=== PATIENT | female | born 1955 | race American Indian/Alaskan Native ===

== ENCOUNTER 2019-02-21 10:58 | Emergency (ER) | payer OTHER ==
[2019-02-21 11:05] VITALS: BP 134/64
--- NOTE | 2019-02-21 12:31 | Emergency Department Report ---
HPI - General Chief Complaint: Arrhythmia/Palpitations Time Seen by Provider: 02/21/19 12:04 - HPI HPI: 63-year-old female presents to the emergency department with a complaint of progressively worsening shortness of breath and palpitations that were going on for the past 2 months. They used to be intermittent but has been more consistent recently. 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 She describes the palpitations as a fluttering sensation. With the shortness of breath, the patient will have some intermittent coughing and some "noises" that she will hear at night while breathing that she cannot explain. She denies any fever, chest pain, nausea, vomiting, back pain or diaphoresis. Her primary care physician is Dr. Merritt. She has a denies any significant past medical history. The patient does take some herbal progesterone replacement as prescribed by her physician. She denies any tobacco or illicit drug use. ED Past Medical Hx - Past Medical History Previous Medical History?: Yes Hx Tuberculosis: No Additional medical history: Heart plapitation - Surgical History Past Surgical History?: No - Social History Smoking Status: Never Smoker Substance Use Type: Alcohol ED Review of Systems ROS: Stated complaint: ROSY/PALPITATIONS Other details as noted in HPI Comment: All other systems reviewed and negative Constitutional: denies: chills, fever Eyes: denies: eye pain, vision change ENT: denies: ear pain, throat pain Respiratory: cough, shortness of breath Cardiovascular: palpitations. denies: chest pain, edema Gastrointestinal: denies: abdominal pain, vomiting Genitourinary: denies: dysuria, discharge Musculoskeletal: denies: back pain, arthralgia Skin: denies: rash, lesions Neurological: denies: headache, weakness Physical Exam - Physical Exam Vital Signs: Vital Signs 02/21/19 02/21/19 11:01 12:13 Temperature 98 F Pulse Rate 67 Respiratory 18 16 Rate Blood Pressure 134/64 O2 Sat by Pulse 97 Oximetry Physical Exam: GENERAL: The patient is well-developed well-nourished. HENT: Normocephalic. Atraumatic. Patient has moist mucous membranes. EYES: Extraocular motions are intact. Pupils equal reactive to light bilaterally. NECK: Supple. Trachea is midline. CHEST/LUNGS: Clear to auscultation. There is no respiratory distress noted. HEART/CARDIOVASCULAR: Regular. There is no tachycardia. There is no murmur. ABDOMEN: Abdomen is soft, nontender. Patient has normal bowel sounds. There is no abdominal distention. SKIN: Skin is warm and dry. NEURO: The patient is awake, alert, and oriented. The patient is cooperative. The patient has no focal neurologic deficits. The patient has normal speech. MUSCULOSKELETAL: There is no tenderness or deformity. There is no limitation range of motion. There is no evidence of acute injury. ED Course Vital Signs 02/21/19 02/21/19 11:01 12:13 Temperature 98 F Pulse Rate 67 Respiratory 18 16 Rate Blood Pressure 134/64 O2 Sat by Pulse 97 Oximetry ED Medical Decision Making - Lab Data Result diagrams: 02/21/19 12:22 02/21/19 12:22 - EKG Data -: EKG Interpreted by Me EKG shows normal: sinus rhythm, axis, intervals, QRS complexes (low-voltage), ST-T waves Rate: bradycardia (55 bpm) - EKG Data When compared to previous EKG there are: previous EKG unavailable Interpretation: other (mild sinus bradycardia, low voltage) - Radiology Data Radiology results: report reviewed, image reviewed interpreted by me: Chest x-ray does not show any acute process. There are no pleural effusions, obvious pneumonia and there is no pneumothorax. PROCEDURE: CT ANGIO CHEST TECHNIQUE: Computerized tomographic angiography of the chest was performed with the IV injection of iodinated nonionic contrast including image processing. The image data was postprocessed using 2-dimensional multiplanar reformatted (MPR) and 3-dimensional (MIP and/or volume rendered) techniques. Automated exposure control, adjustment of mA and/or kV according to patient size, or iterative reconstruction dose optimization techniques were utilized. CT DOSE LENGTH PRODUCT: 690.7 mGycm HISTORY: SOB, palpitations, elevated dimer COMPARISONS: None . FINDINGS: CARDIOVASCULAR: There is no evidence for pulmonary embolic disease. There is mild cardiomegaly. No pericardial effusion is seen. There is coronary and aortic atherosclerosis. There is approximately 4.2 cm aneurysmal dilatation of the ascending thoracic aorta; no dissection or rupture. MEDIASTINUM AND JAS: Small hiatal hernia with mild thickening of the distal esophagus which may represent postinflammatory change or reflux esophagitis in the appropriate clinical setting. No mass lesion, lymphadenopathy, emphysema, or abnormal fluid collection is seen. LUNGS: There are bilateral upper lobe small emphysematous bullae. There is no acute parenchymal infiltrate, lung nodule, or endobronchial obstructing lesion seen. No pleural effusion or pneum othorax is evident. CHEST WALL: There are no chest wall lesions seen. The visualized bony structures are within normal limits. No axillary lymphadenopathy is noted. UPPER ABDOMEN: Limited views through the upper abdomen demonstrate no gross acute abnormality. IMPRESSION: 1. No evidence for pulmonary embolic disease. 2. Approximately 4.2 cm aneurysmal dilatation of the ascending thoracic aorta; no dissection or rupture. 3. Mild cardiomegaly. 4. No acute parenchymal infiltrate, pleural effusion, endobronchial obstructing lesion or pneumothorax seen. 5. Small hiatal hernia with mild thickening of the distal esophagus which may represent postinflammatory change or reflux esophagitis in the appropriate clinical setting. This document is electronically signed by Tai Knight MD., February 21 2019 03:15:33 PM ET Transcribed By: [facility] Dictated By: TAI KNIGHT Electronically Authenticated By: TAI KNIGHT Signed Date/Time: 02/21/19 1517 - Medical Decision Making 63-year-old female presents with acute on chronic shortness of breath and palpitations. On examination she does not appear to be in any respiratory or acute distress. Heart and lung sounds are normal to auscultation. EKG was done that was normal without ST elevation ND, ischemia or dysrhythmia. The patient's labs were mostly unremarkable CBC, metabolic panel, TSH and troponin. She did have a slightly elevated and equivocal d-dimer level at 260. Therefore, a CT angiography of the chest was done that did not show any pulmonary embolism but did show an incidental finding of a 4.2 cm aneurysmal dilation of the descending thoracic aorta without any signs of dissection or rupture. It was also a very small hiatal hernia with some inflammatory changes. I do not think that these incidental findings are necessarily the cause of the patient's shortness of breath or palpitations. She has no chest pain or back pain. Her vital signs and stable throughout her ED course including being afebrile. I spoke to the patient in great detail regarding the incidental CT findings, especially the thoracic aneurysm. At 4.2 cm and asymptomatic, it is not at a size where the patient would require elective surgical repair. However I explained the importance of following up with her primary care physician, and that the fact that this will need to be monitored and some imaging most likely repeated to make sure that it is not growing in size. The patient also understands that she will need to make sure that she returns to the emergency department, or any closest emergency department, with any development of chest pain, back pain, worsening shortness of breath, and with any acute distress. The patient understands and agrees to the plan. - Differential Diagnosis hyperthyroidism, dysrhythmia, ND, PE Critical care attestation.: If time is entered above; I have spent that time in minutes in the direct care of this critically ill patient, excluding procedure time. ED Disposition Clinical Impression: Palpitations, Shortness of breath Thoracic aortic aneurysm Qualifiers: Presence of rupture: without rupture Qualified Code(s): I71.2 - Thoracic aortic aneurysm, without rupture Disposition: - TO HOME OR SELFCARE Is pt being admited?: No Condition: Stable Instructions: Palpitations (ED), Thoracic Aortic Aneurysm (ED), Dyspnea (ED) Additional Instructions: Please follow-up with your primary care physician in the next few days regarding your palpitations and shortness of breath symptoms, as well as the incidental finding of the lower thoracic aortic aneurysm. Return to the emergency department and/or call 911 immediately with any development of chest pain, worsening of your symptoms, any acute distress. I am giving him a referral for a local roll forming machine set up operator, Dr. Brooks, to follow-up regarding or palpitations. Referrals: EDDA BROOKS MD [Staff Physician] - 2-3 Days HAYDEE MERRITT MD [Primary Care Provider] - 2-3 Days Time of Disposition: 17:07
[2019-02-21 12:46] LABS: Basophils % (Auto) 0.3 % (0.0-1.8); Eosinophils # (Auto) 0.2 K/mm3 (0.0-0.4); Eosinophils % (Auto) 3.8 % (0.0-4.3); Hematocrit 39.4 % (30.3-42.9); Hemoglobin 13.1 gm/dl (10.1-14.3); Lymphocytes # (Auto) 1.3 K/mm3 (1.2-5.4); Lymphocytes % (Auto) 24.4 % (13.4-35.0); Mean Corpuscular HGB Conc 33 % (30-34); Mean Corpuscular Volume 86 fl (79-97); Monocytes # (Auto) 0.4 K/mm3 (0.0-0.8); Monocytes % (Auto) 7.5 % (0.0-7.3); Platelet Count 246 K/mm3 (140-440); Red Cell Distribution Width 13.6 % (13.2-15.2)
[2019-02-21 13:02] LABS: BUN/Creatinine Ratio 11; Blood Urea Nitrogen 9 mg/dL (7-17); Calcium 8.4 mg/dL (8.4-10.2); Hemolysis Index 8
--- NOTE | 2019-02-21 14:54 | XRay Report ---
PROCEDURE: XR CHEST ROUTINE 2V TECHNIQUE: PA and lateral chest radiographs were obtained. HISTORY: SOB, palpitations COMPARISONS: None. FINDINGS: Heart: Normal. Mediastinum/Vessels: Normal. Lungs/Pleural space: Normal. Bony thorax: No acute osseous abnormality. IMPRESSION: No radiographic evidence of acute cardiopulmonary disease. This document is electronically signed by Elio Quinn MD., February 21 2019 02:52:26 PM ET
--- NOTE | 2019-02-21 15:17 | Cat Scan Report ---
PROCEDURE: CT ANGIO CHEST TECHNIQUE: Computerized tomographic angiography of the chest was performed with the IV injection of iodinated nonionic contrast including image processing. The image data was postprocessed using 2-dim ensional multiplanar reformatted (MPR) and 3-dimensional (MIP and/or volume rendered) techniques. Aut omated exposure control, adjustment of mA and/or kV according to patient size, or iterative reconstru ction dose optimization techniques were utilized. CT DOSE LENGTH PRODUCT: 690.7 mGycm HISTORY: SOB, palpitations, elevated dimer COMPARISONS: None . FINDINGS: CARDIOVASCULAR: There is no evidence for pulmonary embolic disease. There is mild cardiomegaly. No pe ricardial effusion is seen. There is coronary and aortic atherosclerosis. There is approximately 4.2 cm aneurysmal dilatation of the ascending thoracic aorta; no dissection or rupture. MEDIASTINUM AND JAS: Small hiatal hernia with mild thickening of the distal esophagus which may repr esent postinflammatory change or reflux esophagitis in the appropriate clinical setting. No mass les ion, lymphadenopathy, emphysema, or abnormal fluid collection is seen. LUNGS: There are bilateral upper lobe small emphysematous bullae. There is no acute parenchymal infil trate, lung nodule, or endobronchial obstructing lesion seen. No pleural effusion or pneumothorax is evident. CHEST WALL: There are no chest wall lesions seen. The visualized bony structures are within normal l imits. No axillary lymphadenopathy is noted. UPPER ABDOMEN: Limited views through the upper abdomen demonstrate no gross acute abnormality. IMPRESSION: 1. No evidence for pulmonary embolic disease. 2. Approximately 4.2 cm aneurysmal dilatation of the ascending thoracic aorta; no dissection or rupt ure. 3. Mild cardiomegaly. 4. No acute parenchymal infiltrate, pleural effusion, endobronchial obstructing lesion or pneumothor ax seen. 5. Small hiatal hernia with mild thickening of the distal esophagus which may represent postinflamma tory change or reflux esophagitis in the appropriate clinical setting. This document is electronically signed by Juany Alvarez MD., February 21 2019 03:15:33 PM ET
== END 2019-02-21 15:56 | disposition home or self-care (01) ==
LOC: ED 10:58
DX: I71.2 Thoracic aortic aneurysm, without rupture (principal)
CPT/HCPCS: 36415; 71046; 71275; 80048; 84443; 84484; 85025; 85379; 93005; 93010; 99284; Q9967